=== PATIENT | male | born 1965 | race Two or more races ===

== ENCOUNTER → 2021-06-22 08:00 | Outpatient (CLI) | payer OTHER | END | disposition home or self-care (01) | LOC: LAB 08:00 → ADM 15:00 → EDSTATUS 06-24 15:00 → AMB-ENDOS 06-24 15:00 | PROVIDERS: ATTEND Colon & Rectal Surgery | DX: U07.1 COVID-19 (principal); K57.32 Diverticulitis of large intestine without perforation or abscess without bleeding; K29.00 Acute gastritis without bleeding; K21.9 Gastro-esophageal reflux disease without esophagitis; K92.1 Melena; K58.8 Other irritable bowel syndrome ==